=== PATIENT | male | born 1965 | race American Indian/Alaskan Native ===

== ENCOUNTER 2018-09-22 14:28 | Emergency (ER) | payer OTHER, MEDICAID ==
[~2018-09-22] VITALS: Ht 185.4 cm; Wt 124.7 kg
== END 2018-09-22 17:04 | disposition short-term general hospital (02) ==
LOC: ED 14:28
DX: S05.42XA Penetrating wound of orbit with or without foreign body, left eye, initial encounter (principal); J45.909 Unspecified asthma, uncomplicated; Z91.018 Allergy to other foods; W01.198A Fall on same level from slipping, tripping and stumbling with subsequent striking against other object, initial encounter
CPT/HCPCS: 70486; 99284-25

== ENCOUNTER 2022-07-26 08:49 | Emergency (ER) | payer OTHER ==
[~2022-07-26] VITALS: Ht 185.4 cm; Wt 124.7 kg
[2022-07-26] MEDS ORDERED: CEPHALEXIN500 M1 PO (09:56)
== END 2022-07-26 10:01 | disposition home or self-care (01) ==
LOC: ED 08:49
PROC: 0JQK0ZZ Repair Left Hand Subcutaneous Tissue and Fascia, Open Approach (ICD-10-PCS; principal; 2022-07-26)
DX: S61.211A Laceration without foreign body of left index finger without damage to nail, initial encounter (principal); S61.012A Laceration without foreign body of left thumb without damage to nail, initial encounter; J45.909 Unspecified asthma, uncomplicated; Z91.018 Allergy to other foods; W26.0XXA Contact with knife, initial encounter
CPT/HCPCS: 12042; 99282-25

== ENCOUNTER 2024-02-07 20:50 | Emergency (ER) | payer OTHER ==
[~2024-02-07] VITALS: Ht 185.4 cm; Wt 122.6 kg
[~2024-02-07 20:50] MED LIST: CEPHALEXIN500 M1 PO
[2024-02-07] MEDS ORDERED: LACTATED RINGER'S 1,000 ML IV ONE (21:15)
[2024-02-07 21:20] LABS: BASOPHILS 0.6 % (0-2); EOSINOPHILS 1.1 % (0-6); HEMATOCRIT 45.4 % (35.0-50.0); HEMOGLOBIN 15.3 g/dL (12.0-18.0); LYMPHOCYTES 35.2 % (24-44); MCH 31.9 (27-36); MCHC 33.7 g/dl (30-36); MCV 94.7 fl (81-99); MONOCYTES 7.8 % (0-12); NEUTROPHILS 55.3 % (39-80); PLATELET COUNT 201 K/uL (140-440); RBC 4.79 M/ul (4.3-5.7); RDW 13.8 (10.5-15.0)
[2024-02-07 21:30] LABS: INR 0.98 (0.80-1.30); PROTIME 12.6 Sec (11.2-14.2)
[2024-02-07 21:41] LABS: PARTIAL THROMBOPLASTIN TIME 25.6 Sec (22.9-41.3)
[2024-02-07 21:42] LABS: ALBUMIN 3.7 g/dL (3.4-5.0); ALBUMIN/GLOBULIN RATIO 0.9 (1.1-2.4); ANION GAP 16.1 (7-21); BILIRUBIN, TOTAL 0.4 ng/dL (0.2-1.0); BUN/CREATININE RATIO 14.28 (6.0-28.6); CALCIUM 9.4 mg/dL (8.5-10.1); CREATININE, SERUM 1.19 mg/dL (0.70-1.30); MAGNESIUM 1.6 mg/dL (1.8-2.4); POTASSIUM 3.1 mmol/L (3.5-5.1); PROTEIN, TOTAL 7.8 g/dL (6.4-8.2)
[2024-02-07] MEDS ORDERED: POTASSIUM CHLORIDE 10 MEQ TABCR PO ONE (22:30)
[2024-02-07] MEDS ORDERED: MAGNESIUM SULFATE 2 GM/50 ML BAG IV ONE (22:30)
[2024-02-07] MEDS ORDERED: MAGNESIUM OXID400 M1 PO ×2 (23:38→23:52)
[2024-02-07 23:53] VITALS: BP 120/84
--- NOTE | 2024-02-08 07:41 | EKG ---
[facility] [address] [place], [place] [address] Signed Normal sinus rhythm Nonspecific T wave abnormality Abnormal ECG No previous ECGs available Confirmed by Jordon Wyman MD ([id number]) on 02/08/2024 7:41:22 AM Electronically Signed By: JORDON WYMAN 02/08/24 0741 PATIENT NAME: [facility] Electrocardiogram DATE OF : 61 PHYSICIAN: JORDON WYMAN REPORT #: [id number] REPORT IS CONFIDENTIAL AND NOT TO BE RELEASED WITHOUT AUTHORIZATION
== END 2024-02-07 23:54 | disposition home or self-care (01) ==
LOC: ED 20:50
PROVIDERS: Family Medicine
DX: E83.42 Hypomagnesemia (principal); E87.6 Hypokalemia; J45.909 Unspecified asthma, uncomplicated; Z91.018 Allergy to other foods
CPT/HCPCS: 36415; 70450; 70496; 70498; 80053; 83735; 84484; 85025; 85610; 85730; 93005; 93010; 99284-25; A9270; J3475; J7121; Q9967